=== PATIENT | female | born 1935 | race Caucasian/White ===

== ENCOUNTER 2024-08-20 03:45 | Day surgery (SDC) | payer MEDICARE, SELFPAY ==
[2024-08-10 13:38] VITALS: BMI 29.4
--- OUTSIDE RECORDS SUMMARY | 2024-08-20 03:48 | XMS_ITS | Clinical Summary ---
Author Organization [facility] Address [address] [place] [address] Care Team Providers Care Practical Nursing Faculty Name Role Phone Romeo Gege K FNP Primary Care Provider Alessio Alarcon MD Unavailable [phone] Allergies Active Allergy Reactions Criticality Noted Date Comments Atorvastatin Myalgias 10/21/2018 Clarithromycin Unknown 07/16/2011 Lisinopril Cough 10/07/2015 Penicillins Unknown 10/07/2015 Sulfa Antibiotics Rash Low 08/04/2018 Sulfamethoxazole-Trimethoprim Unknown 2015 Tetanus Toxoid Unknown 10/07/2015 Medications aspirin 81 MG tablet Take by mouth daily. 006 Active Cholecalciferol (VITAMIN D-3) 5000 units TabIndications:Vi tamin D deficiency Take 1 tablet (5,000 Units total) by mouth daily. 30 tablet 5 018 Active Cyanocobalamin (B-12) 2000 MCG Tab Take by mouth daily. Active Glucosamine 500 MG Cap Takes twice daily Active vitamin C (ASCORBIC ACID) 250 MG tablet Take 2 tablets (500 mg total) by mouth daily. Active TURMERIC OR Take by mouth daily. Active loratadine (CLARITIN) 10 MG tabletIndications :Runny nose Take 1 tablet (10 mg total) by mouth daily. 7 tablet 024 Active rosuvastatin (CRESTOR) 5 MG tablet TAKE 1 TABLET TWO TIMES A WEEK. 24 tablet 2 024 Active famotidine (PEPCID) 20 MG tabletIndications :Gastroesophageal reflux disease without esophagitis TAKE 1 TABLET (20 MG TOTAL) BY MOUTH 2 (TWO) TIMES DAILY. 180 tablet 025 Active Additional Information Patient taking differently:20 mg OralNightly PRN, Reported on 07/01/2024 hydroCHLOROthiazi de (MICROZIDE) 12.5 MG tabletIndications :Primary hypertension TAKE 1 TABLET (12.5 MG TOTAL) BY MOUTH EVERY MORNING. 90 tablet 025 Active Magnesium Oxide 420 MG Tab Take 400 mg by mouth daily. Active pantoprazole EC (PROTONIX) 40 MG tablet Take 1 tablet (40 mg total) by mouth daily. Active losartan (COZAAR) 25 MG tabletIndications :Primary hypertension TAKE 1 TABLET (25 MG TOTAL) BY MOUTH DAILY. 90 tablet 025 Active pantoprazole EC (PROTONIX) 40 MG tabletIndications :Gastroesophageal reflux disease without esophagitis Take 1 tablet (40 mg total) by mouth daily. 90 tablet 025 Active levothyroxine (SYNTHROID) 100 MCG tabletIndications :Acquired hypothyroidism TAKE 1 TABLET (100 MCG TOTAL) BY MOUTH EVERY MORNING. 90 tablet 025 Active levothyroxine (SYNTHROID) 100 MCG tabletIndications :Acquired hypothyroidism TAKE 1 TABLET (100 MCG TOTAL) BY MOUTH EVERY MORNING. 90 tablet 025 2024 Discontinued Active Problems Problem Noted Date Diagnosed Date Chronic fatigue 09/07/2022 Situational stress 09/07/2022 Primary osteoarthritis of both knees 10/25/2021 Assessment & Plan (12/10/2021 3:42 PM CDT): We discussed the risks, benefits and alternatives. The only thing proven to slow the progression of osteoarthritis is weight loss. Every pound lost relieves 4 to 6 pounds of stress across the knee. We discussed unloading braces. Formal physical therapy to help with flexibility, mobility and strength. We discussed TENS units. Nonsteroidal anti-inflammatories as well as Tylenol and pain medication and their side effects. We discussed steroid versus Visco supplement injection. We discussed eventual total knee arthroplasty. Right worse than left Patient would like to have a lateral unloading brace for the right to improve pain and stability Assessment & Plan (10/25/2021 3:30 PM CDT): We discussed the risks, benefits and alternatives. The only thing proven to slow the progression of osteoarthritis is weight loss. Every pound lost relieves 4 to 6 pounds of stress across the knee. We discussed unloading braces. Formal physical therapy to help with flexibility, mobility and strength. We discussed TENS units. Nonsteroidal anti-inflammatories as well as Tylenol and pain medication and their side effects. We discussed steroid versus Visco supplement injection. We discussed eventual total knee arthroplasty. Lateral unloading brace right for pain and instability Begin formal physical therapy right knee and left foot and ankle Follow-up in 6 weeks Posterior tibialis muscle dysfunction 10/25/2021 Assessment & Plan (10/25/2021 3:31 PM CDT): We discussed the risks, benefits and alternatives. We offered an Soco boot or other type of supportive bracing. Would like to try formal physical therapy first. Follow-up in 6 weeks. Chronic pain of both knees 05/09/2021 Lower extremity edema 11/20/2018 Acute duodenitis 10/10/2018 Coronary artery disease invo lving [place] coronary artery of [place] heart without angina pectoris 08/29/2018 Assessment & Plan (12/10/2021 3:41 PM CDT): Therefore would like to avoid nonsteroidal anti-inflammatories Assessment & Plan (10/27/2021 8:09 AM CDT): Therefore, need to avoid nonsteroidal anti-inflammatories HARLEY (dyspnea on exertion) 07/24/2018 Precordial pain 07/24/2018 Vitamin D deficiency 06/19/2018 Assessment & Plan (10/27/2021 8:09 AM CDT): Continue supplementation B12 deficiency 04/15/2018 Vitamin B12 deficiency 03/08/2017 Overview (06/19/2018): Date Onset: 03/08/2017 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 Luís Anton Date Onset: 12/04/16 Cataract 01/02/2017 Overview (04/08/2020): Note: Right; Dr. Luís Anton Date Onset: 12/04/16 Pseudophakia 01/02/2017 Overview (04/08/2020): Note: Left; Dr. Luís Anton Date Onset: 12/04/16 Arthritis 02/03/2013 Gastroesophageal reflux disease 02/03/2013 Assessment & Plan (10/25/2021 3:32 PM CDT): Therefore would like to avoid nonsteroidal anti-inflammatories Disease of thyroid gland 02/03/2013 Malignant neoplasm of uterus (CMS/HCC HHS/HCC) 0 01/19/2013 Overview (04/08/2020): Note: Well differentiated adenocarcinoma of endometrium. Has followed up with [facility] Date Onset: 01/19/2013 Depression 05/20/2012 Overview (04/15/2018): Date Onset: 05/20/2012 Anxiety disorder 01/14/2012 Overview (04/15/2018): Date Onset: 01/14/2012 Osteoarthrosis involving lower leg 01/14/2012 Overview (04/08/2020): Date Onset: 01/14/2012 Gastro-esophageal reflux disease without esophag itis 07/16/2011 Mixed hyperlipidemia 07/16/2011 Hypothyroidism 07/16/2011 HTN (hypertension) Resolved Problems Problem Noted Date Diagnosed Date Resolved Date Hypertension 02/27/2017 11/20/2018 Overview (04/15/2018): Date Onset: 02/27/2017 Encounters Date Type Department Care Team Description 08/10/2024 Telephone [facility], [address] [address] Alessio Alarcon MD Surgical Clearance ([facility] GI lab requesting cardiac clearance) 07/07/2024 10:12 AM CDT - 07/07/2024 11:59 PM CDT Hospital Encounter [facility] [address] [place] [address] Tye Giordano MD Discharge Disposition: Home or Self Care (Routine Discharge) 07/07/2024 Travel 07/01/2024 1:00 PM PORTFOLIO ANALYST Office Visit [facility] [address] [place] [address] Gege Walters, RICHIE Follow Up (Pt is here for a medication management f/u, Pt states she is doing well, she does want to discuss a few things) 07/01/2024 Travel 06/30/2024 Scan [facility] SR[facility] Scanned, [facility] 06/29/2024 Scan [facility]CS Scanned, [facility] from Last 3 Months Immunizations Immunization Administration Dates Next Due Arexvy Respiratory Syncytial Virus (RSV, adjuvanted) 0.5 mL, PF 03/12/2023 Fluzone High Dose (IIV, triv alent, 0.5mL) 02/12/2024,02/26/2017,02/24/2016 Fluzone High Dose - >Age 65 (Prefilled Syringe) 03/12/2023,02/26/2022,02/07/2021,2019,02/19/2019,02/26/2017,02/24/2016 Influenza Adult (Generic) 02/26/2017,02/24/2016 MODERNA COVID-19 (12+) MRNA, LNP-S, PF, 100 MCG/ 0.5 ML DOSE 03/20/2021,07/07/2020,06/09/2020 Pneumococcal (Pneumovax 23) 02/19/2019 Pneumococcal (Prevnar 13) 02/24/2016 Family History Medical History Relation Comments Lung Disease Brother Heart Disease Mother Cancer Son Relation Status Comments Brother (Age 77) Father (Age 72) Maternal Grandfather Maternal Grandmother Mother (Age 89) Paternal Grandfather Paternal Grandmother Sister Alive Son Social History Tobacco Use Types Packs/Day Years Used Date Smoking Tobacco: Never Smokeless Tobacco: Never Tobacco Cessation:Counseling Given: Not Answered Comments:na Alcohol Use Standard Drinks/Week Comments No 0 (1 standard drink = 0.6 oz pur e alcohol) AUDIT-C Answer Date Recorded Frequency of Alcohol Consumption Never 03/06/2018 Average Number of Drinks Not on file 018 Frequency of Binge Drinking Not on file 11/2017 PHQ-2 Answer Date Recorded Patient Health Questionnaire-2 Score 0 07/01/2024 Comments No Sex and Gender Information Value Date Recorded Sex Assigned at Female 07/31/2023 9:44 AM CDT Legal Sex Female 10:55 PM CDT Gender Identity Female 07/31/2023 9:44 AM CDT Sexual Orientation Straight 07/31/2023 9: 44 AM CDT Occupation Industry Job Start Date Job End Date Not on file Not on file Not on file Not on file Last Filed Vital Signs Vital Sign Reading Time Taken Comments Blood Pressure 124/76 07/01/2024 1:08 PM PORTFOLIO ANALYST Pulse 72 07/01/2024 1:08 PM PORTFOLIO ANALYST Temperature 36.9 C (98.5 F) 07/01/2024 1:08 PM PORTFOLIO ANALYST Respiratory Rate 16 07/01/2024 1:08 PM PORTFOLIO ANALYST Oxygen Saturation 96% 07/01/2024 1:08 PM PORTFOLIO ANALYST Inhaled Oxygen Concentration - - Weight 74.4 kg (164 lb) 07/01/2024 1:08 PM PORTFOLIO ANALYST Height 157.5 cm (5' 2 ) 07/01/2024 1:08 PM PORTFOLIO ANALYST Body Mass Index 30 07/01/2024 1:08 PM PORTFOLIO ANALYST Plan of Treatment Upcoming Encounters Date Type Department Care Team (Late st Contact Info) Description 10/02/2024 3:00 PM CDT Office Visit [facility] [address] [place] [address] Gege Walters, RICHIE [address] [place] [address] 01/07/2025 10:45 AM CDT [facility] [address] [place] [phone] Alessio Alarcon MD [facility] [address] [place] [address] Health Maintenance Due Date Last Done Comments DTaP, Tdap and Td Vaccines ( 1 - Tdap) 11/02/2024 Postponed from 10/15 (Patient Refused) Annual Medicare Wellness Visit 07/01/2025 Postponed from 10/15 (Patient Refused) COVID-19 Vaccine (4 - 2023-2 5 season) 2025 03/20/2021, 07/07/2020, 06/09/2020 Postponed from 12/29/2023 (Patient Refused) Zoster Vaccines (1 of 2) 07/01/2025 Pos tponed from 1986 (Patient Refused) Pneumococcal Vaccine: 50+ Years Completed 02/19/2019, 02/24/2016 RSV Immunization or 60+ Years Completed 03/12/2023 PHQ-2 (Physician Habematolel) Completed 07/01/2024 Meningococcal B Vaccine Aged Out No l onger eligible based on patient's age to complete this topic Meningococcal Vaccine Aged Out No marie erich eligible based on patient's age to complete this topic RSV Immunizations Under 20 Months Aged Out No longer eligible b ased on patient's age to complete this topic Procedures Procedure Name Priority Date/Time Associated Diagnosis Comments XR UGI SINGLE CON W KUB Routine 07/07/2024 11:13 AM CDT Gastro-esophageal reflux disease without esophagitis from Last 3 Months Results * XR UGI SINGLE CON W KUB (07/07/2024 11:13 AM CDT) Anatomical Region Laterality Modality NA Other, Computed Tomography, Computed Tomography 07/07/2024 2:40 PM CDT Impressions 07/07/2024 2:47 PM CDT IMPRESSION: 1. Towards the end of the examination, there was silent tracheal aspiration. No Cough reflex. She cleared most of the barium, when I instructed her to cough.. 2. . Patient stated she had no difficulty breathing. Patient states that she usually does not have any trouble swallowing liquids or solids 3. Follow-up with swallowing evaluation would be of benefit... 4. Small sliding-type hiatal hernia. Mild/moderate gastroesophageal reflux to the thoracic inlet. No gross reflux esophagitis. 5. No gross abnormality of the stomach or duodenal bulb. 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 Ordered By: TYE GIORDANO Interpreted By: Cait Dasilva, 07/07/2024 2:40 PM Narrative 07/07/2024 2:47 PM CDT [address] [place] [address] IMAGING STUDIES: XR UGI SINGLE CON W KUB DATE: 07/07/2024 10:20 AM CLINICAL HISTORY: Gastro-esophageal reflux . Indigestion. History of hiatal hernia. FINDINGS: 2.6 minutes OF FLUOROSCOPIC TIME WAS UTILIZED. Grossly normal appearance to the stomach without ulceration or mass lesion.. Duodenal bulb without mass or ulceration. Normal flow of contrast from the stomach into the small bowel... 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 Normal flow of contrast from the oropharynx into the stomach without obstructive or constrictive lesions. Small sliding-type hiatal hernia measuring 1.6 cm. Procedure Note Lloyd Dasilva MD - 07/07/[address] [place] [address] IMAGING STUDIES: XR UGI SINGLE CON W KUBDATE: 07/07/2024 10:20 AM CLINICAL HISTORY: Gastro-esophageal reflux . Indigestion. History ofhiatal hernia. FINDINGS: 2.6 minutes OF FLUOROSCOPIC TIME WAS UTILIZED. Grossly normal appearance to the stomach without ulceration or masslesion.. Duodenal bulb without mass or ulceration. Normal flow of contrast from thestomach into the small bowel... Incidental note made of 6.5 cm duodenaldiverticulum along the transverse portion of the duodenum. Normal flow of contrast from the oropharynx into the stomach withoutobstructive or constrictive lesions. Small sliding-type hiatal hernia measuring 1.6 cm. IMPRESSION: 1. Towards the end of the examination, there was silent trachealaspiration. No Cough reflex. She cleared most of the barium, when Iinstructed her to cough.. 2. . Patient stated she had no difficulty breathing. Patient states thatshe usually does not have any trouble swallowing liquids or solids 3. Follow-up with swallowing evaluation would be of benefit... 4. Small sliding-type hiatal hernia. Mild/moderate gastroesophagealreflux to the thoracic inlet. No gross reflux esophagitis. 5. No gross abnormality of the stomach or duodenal bulb. Transverseduodenal diverticulum without gross complication. Ordered By: TYE GIORDANO Interpreted By: Cait Dasilva, 07/07/2024 2:40 PM us Tye Giordano MD FLUOROSCOPY Final Result from Last [address] [place] [address] Advance Directives * Full Code (Latest Code Status on File) Date Activated Date Inactivated Comments 08/04/2018 4:02 PM 08/04/2018 9:14 PM Care Teams Practical Nursing Faculty Relationship Specialty Start Date End Date Gege Walters FNP [address] [place] [address] [place] [address] PCP - General NURSE PRACTITIONER 12/06/17 Alessio Alarcon MD [address] [address] Zina Tray Line Supervisor CARDIOVASCULAR DISEASE 12/12/17
--- OUTSIDE RECORDS SUMMARY | 2024-08-20 03:48 | XMS_ITS | Encounter Summary ---
Author Organization [facility] Address Formerly [facility] [place] [address] Care Team Providers Care Tank Calibrator Name Role Phone Gege Walters Primary Care Provider [phone] Alessio Alarcon MD Unavailable [phone] Encounter Details Date Type Department Care Team (Late st Contact Info) Description 08/07/2018 Abstract [facility], [address] [address] Anna Marie Calderón MA Social History Tobacco Use Types Packs/Day Years Used Date Smoking Tobacco: Never Smokeless Tobacco: Never Alcohol Use Standard Drinks/Week Comments No 0 (1 standard drink = 0.6 oz pur e alcohol) AUDIT-C Answer Date Recorded Frequency of Alcohol Consumption Never 03/06/2018 Average Number of Drinks Not on file 018 Frequency of Binge Drinking Not on file 11/2017 Comments No Sex and Gender Information Value Date Recorded Sex Assigned at Female 07/31/2023 9:44 AM CDT Legal Sex Female 10:55 PM CDT Gender Identity Female 07/31/2023 9:44 AM CDT Sexual Orientation Straight 07/31/2023 9: 44 AM CDT Occupation Industry Job Start Date Job End Date Not on file Not on file Not on file Not on file documented as of this encounter Plan of Treatment Upcoming Encounters Date Type Department Care Team (Late st Contact Info) Description 10/02/2024 3:00 PM CDT Office Visit [address] [place] [address] Gege Walters FNP [address] [facility] [place] [address] 01/07/2025 10:45 AM CDT Office Visit [facility] [address] [facility] [place] [phone] Alessio Alarcon MD [id number] [place] [address] documented as of this encounter Procedures Procedure Name Priority Date/Time Associated Diagnosis Comments HCT (ABSTRACTED) Routine 08/07/2018 BUN (OUTSIDE LAB) Routine 08/07/2018 documented in this encounter Results * BUN (OUTSIDE LAB) (08/07/2018) BUN 17 08/07/2018 us Doc [facility] LAB-OUTSIDE/ABSTRACTED Edite d Result - Final * HCT (ABSTRACTED) (08/07/2018) HCT 41.0 08/07/2018 us Doc [facility] LAB-OUTSIDE/ABSTRACTED Final Result documented in this encounter Visit Diagnoses Not on filedocumented in this encounter Additional Health Concerns Infection Onset Date Last Indicated Resolved Time COVID-19 Rule Out 01/22/2022 01/22/2022 01/22/2022 11:22 AM CDT COVID-19 Confirmed 01/22/2022 01/22/2022 2 12:32 AM CDT COVID-19 Rule Out 02/21/2023 02/21/2023 02/21/2023 12:38 PM CDT COVID-19 Confirmed 02/21/2023 02/21/2023 3 12:32 AM PARING MACHINE OPERATOR documented as of this encounter Care Teams Tank Calibrator Relationship Specialty Start Date End Date Gege Walters FNP [address] [place] [address] [place] [address] PCP - General NURSE PRACTITIONER 12/06/17 Alessio Alarcon MD [facility]. [facility] [address] [place] [address] [place] Commercial Baker Helper CARDIOVASCULAR DISEASE 12/12/17 documented as of this encounter
--- OUTSIDE RECORDS SUMMARY | 2024-08-20 03:48 | XMS_ITS | Encounter Summary ---
Author Organization [facility] Address formerly [facility] [place] [address] Care Team Providers Care Geothermal Installer Name Role Phone Gege Walters Primary Care Provider [phone] Alessio Alarcon MD Unavailable [phone] Encounter Details Date Type Department Care Team (Late Contact Info) Description 01/01/2018 Abstract [facility] at [address] [address] Anna Marie Calderón MA Social History Tobacco Use Types Packs/Day Years Used Date Smoking Tobacco: Never Comments Unknown Sex and Gender Information Value Date Recorded Sex Assigned at Female 07/31/2023 9:44 AM CDT Legal Sex Female 10:55 PM CDT Gender Identity Female 07/31/2023 9:44 AM CDT Sexual Orientation Straight 07/31/2023 9: 44 AM CDT documented as of this encounter Plan of Treatment Upcoming Encounters Date Type Department Care Team (Late Contact Info) Description 10/02/2024 3:00 PM CDT Office Visit [facility] [address] [place] [address] Gege Walters FNP [address] [place] [address] 01/07/2025 10:45 AM CDT [facility] [address] [place] [phone] Alessio Alarcon MD [address] [address] documented as of this encounter Procedures Procedure Name Priority Date/Time Associated Diagnosis Comments PROTIME (OUTSIDE LAB) Routine 07/24/2018 CBC (OUTSIDE LAB) Routine 07/24/2018 BASIC METABOLIC PANEL Routine 07/24/2018 CBC (OUTSIDE LAB) Routine 11/30/2017 COMPREHENSIVE METABOLIC PANEL Routine 11/30/2017 LIPID PANEL Routine 11/30/2017 documented in this encounter Results * (ABNORMAL) BASIC METABOLIC PANEL (07/24/2018) SODIUM S/P/B 139 POTASSIUM S/P/B 4.1 CO2 28 CHLORIDE S/P/B 102 GLUCOSE 114 mg/dL CALCIUM S/P/B 9.2 BUN 18 CREATININE S/P/B 0.7 0.5 - 1.0 EGFR AFR. AMER. 103(A) <=90 EGFR NON-AFR. AMER. 85 <=90 07/24/2018 us Doc [facility] LABORATORY Final Result * PROTIME (OUTSIDE LAB) (07/24/2018) PROTIME 11.8 INR 1.0 07/24/2018 us Doc [facility] LAB-OUTSIDE/ABSTRACTED Final Result * CBC (OUTSIDE LAB) (07/24/2018) WBC 7.6 HGB 13.4 HCT 41.9 PLT 243 07/24/2018 us Doc [facility] LAB-OUTSIDE/ABSTRACTED Final Result * LIPID PANEL (11/30/2017) CHOLESTEROL 195 HDL 51 TRIGLYCERIDES 143 LDL (CALCULATED) 115 11/30/2017 us Doc [facility]ORAT[facility] Final Result * COMPREHENSIVE METABOLIC PANEL (11/30/2017) SODIUM S/P/B 140 POTASSIUM S/P/B 4.0 CO2 32 CHLORIDE S/P/B 101 GLUCOSE 102 mg/dL CALCIUM S/P/B 8.5 BUN 23 CREATININE S/P/B 0.8 0.5 - 1.0 EGFR AFR. AMER. 89 <=90 EGFR NON-AFR. AMER. 73 <=90 ALKALINE PHOSPHATASE S/P/B 66 ALT 29 AST 20 BILIRUBIN TOTAL S/P/B 0.4 ALBUMIN S/P/B 3.6 3.5 - 5.0 TOTAL PROTEIN S/P/B 7.1 11/30/2017 us Doc [facility]ORAT[facility] Final Result * CBC (OUTSIDE LAB) (11/30/2017) Pathologist [facility] WBC 6.4 HGB 14.5 HCT 43.2 PLT 223 11/30/2017 us Doc [facility] LAB-OUTSIDE/ABSTRACTED Final Result documented in this encounter Visit Diagnoses Not on filedocumented in this encounter Additional Health Concerns Infection Onset Date Last Indicated Resolved Time COVID-19 Rule Out 01/22/2022 01/22/2022 01/22/2022 11:22 AM CDT COVID-19 Confirmed 01/22/2022 01/22/2022 2 12:32 AM CDT COVID-19 Rule Out 02/21/2023 02/21/2023 02/21/2023 12:38 PM CDT COVID-19 Confirmed 02/21/2023 02/21/2023 3 12:32 AM CUT PRESSMAN documented as of this encounter Care Teams Geothermal Installer Relationship Specialty Start Date End Date Gege Walters FNP [address] [place] [address] [place] [address] PCP - General NURSE PRACTITIONER 12/06/17 Alessio Alarcon MD [facility]. [facility] [address] [place] [address] [place] Commutator Undercutter CARDIOVASCULAR DISEASE 12/12/17 documented as of this encounter
--- OUTSIDE RECORDS SUMMARY | 2024-08-20 03:48 | XMS_ITS | Encounter Summary ---
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 Ass't: Chart Document Preoperative Diagnosis: Epigastric pain, post prandial nausea, and abnormal CT showing thickening of distal esophagus . Postoperative Diagnosis: Hiatal hernia, moderately tight Schatzki's ring and extension of gastric like mucosa into the distal esophagus - biopsied to rule out Li's esophagus. Name of Operation: Esophagogastroduodenoscopy with biopsy of distal esophagus, esophageal dilatation performed with the Manzano dilator Norwegian size 54. Biopsy of distal duodenum. PROCEDURE AND FINDINGS: PREMEDICATION: Propofol anesthesia. The Olympus video panendoscope was passed and the upper GI tract examined with the following findings: 1. Small hiatal hernia with moderately tight Schatzki's ring and extension of gastric like mucosa in the distal esophagus. That tongue of mucosa was biopsied to rule out Li's esophagus. 2. Stomach was normal, the biopsy of the duodenum was also obtained to rule out celiac disease contributing to symptoms. 3.Esophageal dilatation was performed with the Manzano dilator Norwegian size 54. RECOMMENDATIONS: I doubt that the patient's post prandial nausea that she has had for a few years will be explained by upper endoscopic and biopsy findings. I'm ordering ultrasound of the gallbladder and if unrevealing, then HIDA scan should be obtained next to evaluate for gallbladder dysfunction. Then, cholecystectomy should be a consideration. Incidentally, this lady believes that her gallbladder is causing problems. Electronically Signed By: Mckenna Owusu M.D. 10/17/2018 11:45 A Mckenna Owusu M.D. RS:marianna A A cc: Peg Grissom FNP-C W. Richard Sylvanovich, M.D. [id number] documented in this encounter Plan of Treatment Upcoming Encounters Date Type Department Care Team (Late st Contact Info) Description 10/02/2024 3:00 PM CDT Office Visit [facility] [address] [address] Gege Walters FNP [address] [place] [address] 01/07/2025 10:45 AM CDT Office Visit [facility] [address] [place] [address] Alessio Alarcon MD [facility]. 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 [address] [place] [address] Zina Pot Lining Supervisor CARDIOVASCULAR DISEASE 12/12/17 documented as of this encounter
--- OUTSIDE RECORDS SUMMARY | 2024-08-20 03:48 | XMS_ITS | Encounter Summary ---
Author Organization [facility] Address Formerly [facility], [facility] [place] [address] Care Team Providers Care Attendant Lodging Facilities Name Role Phone Gege Walters Primary Care Provider [phone] Alessio Alarcon MD Unavailable [phone] Encounter Details Date Type Department Care Team (Late st Contact Info) Description 03/04/2018 Abstract [facility] Conversion Md, Generic Conversion, Social History Tobacco Use Types Packs/Day Years Used Date Smoking Tobacco: Never AUDIT-C Answer Date Recorded Frequency of Alcohol Consumption Never 03/06/2018 Average Number of Drinks Not on file 018 Frequency of Binge Drinking Not on file 11/2017 Comments Unknown Sex and Gender Information Value Date Recorded Sex Assigned at Female 07/31/2023 9:44 AM CDT Legal Sex Female 10:55 PM CDT Gender Identity Female 07/31/2023 9:44 AM CDT Sexual Orientation Straight 07/31/2023 9: 44 AM CDT documented as of this encounter Functional Status documented as of this encounter Plan of Treatment Upcoming Encounters Date Type Department Care Team (Late st Contact Info) Description 10/02/2024 3:00 PM CDT Office Visit [facility] [address] [place] [address] Gege Walters FNP [address] [place] [address] 01/07/2025 10:45 AM CDT [facility] [address] [place] [phone] Alessio Alarcon MD [facility]. 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 [facility] [address] [place] [address] [place] Data Coordinator CARDIOVASCULAR DISEASE 12/12/17 documented as of this encounter
--- OUTSIDE RECORDS SUMMARY | 2024-08-20 03:48 | XMS_ITS | Encounter Summary ---
Author Organization [facility] Address [facility] [place] [address] Care Team Providers Care Change Director Name Role Phone Gege WaltersP Primary Care Provider [phone] Alessio Alarcon MD Unavailable [phone] Encounter Details Date Type Department Care Team (Late st Contact Info) Description 04/02/2022 Abstract [facility] [address] [place] [id number] Barb Tamayo, DO [address] [place], [place] [id number] Social History Tobacco Use Types Packs/Day Years Used Date Smoking Tobacco: Never Smokeless Tobacco: Never Tobacco Cessation:Counseling Given: Not Answered Comments:Pcp to grief counsellor Alcohol Use Standard Drinks/Week Comments No 0 (1 standard drink = 0.6 oz pur e alcohol) AUDIT-C Answer Date Recorded Frequency of Alcohol Consumption Never 03/06/2018 Average Number of Drinks Not on file 018 Frequency of Binge Drinking Not on file 11/2017 PHQ-2 Answer Date Recorded PHQ-2 Score - If the patient scores above 3, please move on to questions 3-9 0 03/06/2022 Comments No Sex and Gender Information Value Date Recorded Sex Assigned at Female 07/31/2023 9:44 AM CDT Legal Sex Female 10:55 PM CDT Gender Identity Female 07/31/2023 9:44 AM CDT Sexual Orientation Straight 07/31/2023 9: 44 AM CDT Occupation Industry Job Start Date Job End Date Not on file Not on file Not on file Not on file COVID-19 Exposure Response Date Recorded In the last 10 days, have yo u been in contact with someone who was confirmed or suspected to have Coronavirus/COVID-19? No / Unsure 03/06/2022 10:20 AM WHEAT GROWER documented as of this encounter Plan of Treatment Upcoming Encounters Date Type Department Care Team (Late st Contact Info) Description 10/02/2024 3:00 PM CDT Office Visit [facility] [address] [place] [phone] Gege Walters FNP [address] [place] [address] 01/07/2025 10:45 AM CDT Office Visit [facility] [address] [place] [phone] Alessio Alarcon MD [facility] [address] [place], [place] [id number] documented as of this encounter Visit Diagnoses Not on filedocumented in this encounter Additional Health Concerns Infection Onset Date Last Indicated Resolved Time COVID-19 Rule Out 02/21/2023 02/21/2023 02/21/2023 12:38 PM CDT COVID-19 Confirmed 02/21/2023 02/21/2023 12:32 AM WHEAT GROWER Assessment Noted Time PHQ-9 Depression Total Score: 0 11/02/19 21 10:42 AM CDT documented as of this encounter Care Teams Change Director Relationship Specialty Start Date End Date Gege Walters FNP [address] [place] [address] PCP - General NURSE PRACTITIONER 12/06/17 Alessio Alarcon MD [facility]. [address] [place], [place] [phone] Zina Termite Treater Helper CARDIOVASCULAR DISEASE 12/12/17 documented as of this encounter
[2024-08-20 08:43] VITALS: BP 198/99; PULSE 78; RESP 16; TEMP 35.8; O2SAT 98
[2024-08-20] MEDS: LACTATED RINGERS 1,000 ML 150 ML IV CONT (08:52)
--- NOTE | 2024-08-20 09:01 | WPDANESEPPF ---
Anes - Initial Pre Proc Eval Procedure: Operation Date: 08/20/24 09:45 Proposed Procedures p Esophagogastroduodenoscopy - Joshua Pena MD Date/Time: 08/20/24 09:01 Surgeon: Joshua Pena MD Pre Op Diagnosis: GERD Patient Data Age: 88 Gender: F Height: 1.57 m Weight: 74.6 kg Last Vital Signs Temp 96.5 F L 08/20/24 08:43 Pulse 78 08/20/24 08:43 Resp 16 08/20/24 08:43 BP 198/99 H 08/20/24 08:43 Pulse Ox 98 08/20/24 08:43 O2 Del Method Room Air 08/20/24 08:43 Allergies Allergy/AdvReac Type Severity Reaction Status Date / Time atorvastatin Allergy Mild Unknown Verified 08/20/24 08:42 lisinopril Allergy Mild Unknown Verified 08/20/24 08:42 Penicillins Allergy Mild Unknown Verified 08/20/24 08:42 Sulfa (Sulfonamide Allergy Mild Unknown Verified 08/20/24 08:42 Antibiotics) Tetanus Vaccines and Toxoid AdvReac Mild Unknown Verified 08/20/24 08:42 Home Medications ?Medication ?Instructions ?Recorded ?Confirmed ?Type famotidine 20 mg tablet 20 mg PO DAILY 06/29/24 08/20/24 History hydrochlorothiazide 12.5 mg capsule 12.5 mg PO DAILY 06/29/24 08/20/24 History levothyroxine 100 mcg capsule 100 mcg PO DAILY 06/29/24 08/20/24 History losartan 25 mg tablet 25 mg PO DAILY 06/29/24 08/20/24 History rosuvastatin 5 mg tablet 5 mg PO DAILY 06/29/24 08/20/24 History pantoprazole 20 mg tablet,delayed 40 mg PO QAM 06/30/24 08/20/24 History release Patient hx anesthesia problems: none Family hx anesthesia problems: none Results Review: All pre-operative results and documents have been reviewed as part of the pre-operative evaluation. [facility] Past Medical History Medical History (Updated 06/29/24 @ 11:42 by Ami Forrest CMA) Thyroid disease GERD (gastroesophageal reflux disease) CAD (coronary artery disease) Cancer Arthritis Allergies Surgical History Surgical History (Updated 06/29/24 @ 10:57 by Carol Garcia) Hx of cataract surgery Hx of tonsillectomy Hx of appendectomy Hx of hysterectomy Social History Social History (Updated 06/29/24 @ 10:58 by Carol Garcia) Smoking status: Never smoker Alcohol intake: never Substance use: never Substance use type: does not use Do You Feel Safe in your Home?: Yes Lack of Transportation: No Lack of Food: Never True Concerned About Future Housing: No Difficulty Paying Gas/Electric Bills: No Difficulty Paying for Meds: No Currently Unemployed: No Education: High School Diploma/GED Living arrangements: with family Spiritual care concerns: No Anes - Eval Final PreProcedure Day of Procedure 08/20/24 09:01 Patient weight: normal Heart: regular rate and rhythm Lungs: clear to auscultation Airway: Mallampati scale class II Neurological: alert and oriented Last oral intake: >/= 8 hours ASA classification: III Emergent: no Anesthetic plan: proceed Anesthesia type and monitoring: general GIVS and standard monitoring Results Review: All pre-operative results and documents have been reviewed as part of the pre-operative evaluation. Informed Consent: The patient's anesthetic plan and its attendant risks and benefits were discussed with the patient/family/POA. Questions were solicited and answers provided to the satisfaction of the patient/family/POA.
--- NOTE | 2024-08-20 09:22 | P.HP_ITS ---
History of Present Illness History of Present Illness Consent: Risks, benefits, and alternatives have been discussed and questions answered. Patient agrees to proceed with procedure. Chief complaint: GERD Narrative: Brionna Cottrell is a 88 year old female here for egd, last one 2018. She is having epigastric pain and pressure that radiates to her throat for years that has worsened since last year, UGI series showed small HH Review of Systems Review of Systems: All systems reviewed & are unremarkable except as noted in HPI and below PMFSH Past Medical History Medical History (Updated 06/29/24 @ 11:42 by Ami Forrest, [facility]) Thyroid disease GERD (gastroesophageal reflux disease) CAD (coronary artery disease) Cancer Arthritis Allergies Surgical History Surgical History (Updated 06/29/24 @ 10:57 by Carol Garcia) Hx of cataract surgery Hx of tonsillectomy Hx of appendectomy Hx of hysterectomy Social History Social History (Updated 06/29/24 @ 10:58 by Carol Garcia) Smoking status: Never smoker Alcohol intake: never Substance use: never Substance use type: does not use Do You Feel Safe in your Home?: Yes Lack of Transportation: No Lack of Food: Never True Concerned About Future Housing: No Difficulty Paying Gas/Electric Bills: No Difficulty Paying for Meds: No Currently Unemployed: No Education: High School Diploma/GED Living arrangements: with family Spiritual care concerns: No Meds Home Medications and Allergies Home Medications ?Medication ?Instructions ?Recorded ?Confirmed ?Type famotidine 20 mg tablet 20 mg PO DAILY 06/29/24 08/20/24 History hydrochlorothiazide 12.5 mg capsule 12.5 mg PO DAILY 06/29/24 08/20/24 History levothyroxine 100 mcg capsule 100 mcg PO DAILY 06/29/24 08/20/24 History losartan 25 mg tablet 25 mg PO DAILY 06/29/24 08/20/24 History rosuvastatin 5 mg tablet 5 mg PO DAILY 06/29/24 08/20/24 History pantoprazole 20 mg tablet,delayed 40 mg PO QAM 06/30/24 08/20/24 History release Allergies Allergy/AdvReac Type Severity Reaction Status Date / Time atorvastatin Allergy Mild Unknown Verified 08/20/24 08:42 lisinopril Allergy Mild Unknown Verified 08/20/24 08:42 Penicillins Allergy Mild Unknown Verified 08/20/24 08:42 Sulfa (Sulfonamide Allergy Mild Unknown Verified 08/20/24 08:42 Antibiotics) Tetanus Vaccines and Toxoid AdvReac Mild Unknown Verified 08/20/24 08:42 Vital Signs Vital Signs - 24 hr 08/20/24 08:43 Temperature 96.5 F L Pulse Rate 78 Respiratory Rate 16 Blood Pressure 198/99 H Pulse Oximetry 98 Oxygen Delivery Room Air Exam Const: General: comfortable and no acute distress HENMT: Face/Nose/Sinus: Normal nares present Eyes: General: appearance normal, both eyes and all related structures Neck: Neck: no JVD Resp: Auscultation: clear to auscultation bilaterally Cardio: Rate: regular rate Rhythm: regular rhythm GI: Inspection: non-distended GI Palp: Yes Soft to palpation Skin: General skin exam: normal color Neuro: Speech: normal speech Extrem: General: normal to inspection Psych: Mental Status: mental status grossly normal Assessment and Plan Assessment and plan (1) GERD (gastroesophageal reflux disease): Code(s): K21.9 - Gastro-esophageal reflux disease without esophagitis Status: Acute Assessment and Plan: egd with bx on medication
[2024-08-20 09:26] VITALS: BP 131/54; PULSE 74; RESP 16; O2SAT 95
[2024-08-20 09:36] VITALS: BP 121/49; PULSE 73; RESP 18; O2SAT 95
[2024-08-20 09:46] VITALS: BP 136/52; PULSE 72; RESP 20; O2SAT 98
== END 2024-08-20 09:52 | disposition home or self-care (01) ==
PROVIDERS: PCP Nurse Practitioner; Referring Provider Surgery; Visit Provider Internal Medicine Gastroenterology
PROC: 0DJ08ZZ Inspection of Upper Intestinal Tract, Via Natural or Artificial Opening Endoscopic (ICD-10-PCS; CPT 43239; principal; 2024-08-20 09:45)
DX: K21.9 Gastro-esophageal reflux disease without esophagitis (principal); E07.9 Disorder of thyroid, unspecified; I25.10 Atherosclerotic heart disease of native coronary artery without angina pectoris; M19.90 Unspecified osteoarthritis, unspecified site; Z98.890 Other specified postprocedural states; Z85.9 Personal history of malignant neoplasm, unspecified
CPT/HCPCS: 43239; 88305; J2704; J7120